=== PATIENT | female | born 1940 | race Caucasian/White ===

== ENCOUNTER 2016-04-29 11:29 | Emergency (ER) | payer OTHER, MEDICARE ==
[~2016-04-29] VITALS: Ht 165.1 cm; Wt 90.7 kg
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
[2016-04-29] MEDS ORDERED: HYDROCHLOROTHIA25 M1 PO (12:34)
[2016-04-29] MEDS ORDERED: SIMVASTATIN40 M1 PO (12:34)
[2016-04-29] MEDS ORDERED: METFORMIN HCL500 M3 PO (12:34)
[2016-04-29] MEDS ORDERED: MONTELUKAST SOD10 M1 PO (12:35)
[2016-04-29] MEDS ORDERED: HYDROXYUREA500 M1 PO (12:36)
--- NOTE | 2016-04-29 13:37 | RADIOLOGY REPORT ---
EXAMINATION: XR HUMERUS, RIGHT CLINICAL INFORMATION: Right arm pain fall COMPARISON: None TECHNIQUE: AP and lateral views of the right humerus. FINDINGS: There is a mildly displaced mildly comminuted impacted fracture involving the proximal humerus likely at least the surgical neck. Possible extension to the greater tuberosity. No additional abnormalities IMPRESSION: Fracture the proximal humerus. Suggest additional radiograph of the right shoulder to more clearly characterize fully extent of the fracture
--- NOTE | 2016-04-29 14:28 | RADIOLOGY REPORT ---
EXAMINATION: XR SHOULDER, RIGHT CLINICAL INFORMATION: Assess proximal humerus fracture COMPARISON: None TECHNIQUE: AP external rotation, Grashey, scapular Y, and axillary views of the right shoulder. FINDINGS: Again noted is the fracture of the proximal humerus involving the surgical neck. The fracture also does appear to extend through the greater tuberosity but with minimal displacement of approximately 1 to 2 mm. The fractures impacted. There is only minimal displacement of the distal humeral fragment resulting in perhaps 2 mm of medial displacement Again the fracture is mildly comminuted at the level of the surgical neck No additional fractures. Mild arthrosis of the acromioclavicular joint. IMPRESSION: Impacted proximal humerus fracture involving the surgical neck and extending to the greater tuberosity but with only minimal displacement
[2016-04-29 14:33] VITALS: BP 120/87
[2016-04-29] MEDS ORDERED: ULTRAM50 M1 PO (14:57)
--- NOTE | 2016-04-29 15:46 | NUR ---
Case Mgmnt TSF: I set up patient with [facility]. I asked them to go out first thing in the morning if they could. I will fax over clinical. I updated patient and family as to the agency name. CM continuing to follow.
--- NOTE | 2016-04-29 16:00 | NUR ---
Case Mgmnt TSF: I faxed over all clinical to [facility]. I received fax confirmation back. CM complete.
== END 2016-04-29 15:31 ==
LOC: ERH 11:29
DX: S42.211A Unspecified displaced fracture of surgical neck of right humerus, initial encounter for closed fracture (principal); W19.XXXA Unspecified fall, initial encounter; Y93.A1 Activity, exercise machines primarily for cardiorespiratory conditioning; Y92.9 Unspecified place or not applicable
CPT/HCPCS: 73030-RT; 73060-RT